=== PATIENT | female | born 1945 | race Caucasian/White ===

== ENCOUNTER 2016-12-01 16:20 | Emergency (ER) | payer MEDICARE, OTHER ==
[~2016-12-01] VITALS: Ht 154.9 cm; Wt 68.2 kg
[~2016-12-01 16:20] MED LIST: ASPI-628 PO; CHOL100045 PO; HYDR25TA4 PO; METO-272 PO; OMEG1CAP5 PO; POTA20TA16 PO; SIMV80TA4 PO
[2016-12-01 16:22] VITALS: BP 150/98; PULSE 94; RESP 20; O2SAT 97
--- NOTE | 2016-12-01 16:31 | ED.REPORT ---
HPI-Trauma Minor / Fall Date of Service Dec 01, 2016 ED Provider: Dr. Hinton Pt is a 71 year old female who presents to the ED via EMS with concerns for a ground level fall onto her face, immediately prior to arrival. She states that she was roller skating with her grand-daughter when she slipped and hit the ground onto her face. She denies any loss of consciousness, but admits to nausea and vomiting post-injury. She has no other complaints. Nursing Notes Stated Complaint: HEAD CONTUSION WHILE ROLLER SKATING Chief Complaint: Head, Face, Neck Trauma Nursing Notes Reviewed: Yes Allergies: Coded Allergies: chlorpromazine (Verified Allergy, Unknown, UNKNOWN, 08/02/14) atorvastatin (Unverified Adverse Reaction, Severe, DIZZINESS, VERTIGO, ) Anesthetics - Amide Type (Verified Adverse Reaction, Intermediate, NAUSEA/ VOMITING, 12/01/16) Anesthetics - Arlette Type- Parabens (Verified Adverse Reaction, Intermediate, NAUSEA/VOMITING, 12/01/16) Scheduled Aspirin (Aspir 81) 81 Mg Tablet.dr 81 MG PO DAILY Cholecalciferol (Vitamin D3) (Vitamin D) 1,000 Unit Capsule 1,000 UNIT PO DAILY Hydrochlorothiazide (Hydrochlorothiazide) 25 Mg Tablet 25 MG PO DAILY Metoprolol Succinate ER (Metoprolol Succinate ER) 50 Mg Tab.er.24h 50 MG PO DAILY [place]-3 Fatty Acids/Fish Oil (Fish Oil 1,000 mg Capsule) 1 Each Capsule 1 EACH PO DAILY Potassium Chloride (Potassium Chloride) 20 Meq Tab.er.prt 20 MEQ PO DAILY TAKE WITH FOOD Simvastatin (Simvastatin) 80 Mg Tablet 80 MG PO HS Scheduled PRN Ondansetron (Zofran) 4 Mg Tablet 4 MG PO Q4H PRN PRN For Nausea General Time Seen by MD: 16:30 Chief Complaint Fall, Face injury Hx Obtained From: Patient Arrived By: Ambulance Onset Occurred: Just prior to arrival Symptom Duration: Since onset Caused by: Accidental Location: Face Nose Quality: Painful Severity: Current: Mild Severity: Maximum: Moderate Similar Sx Previous: Yes Risk Factors Head CT Imaging RF Statements: Risk factors reviewed Past Medical History Past Medical History Healthy Smoking History Unknown if Ever Smoker Review of Systems Constitutional: Denies: Chills, Fever, Malaise, Weakness - generalized Respiratory: Denies: Shortness of breath, Wheezing Musculoskeletal: Denies: Back pain, Extremity pain, Neck pain Neurologic: Reports: Headache, Denies: Change LOC, Confusion, Dizziness, Lightheaded, Seizure, Syncope Complete sys rev & neg: except as marked. GI: Reports: Nausea, Vomiting Physical Exam Initial Vital Signs Vital Signs (First) Date Time Temp Pulse Resp B/P Pulse Ox O2 Delivery O2 Flow Rate FiO2 12/01/16 16:22 36.4 94 20 150/98 97 Room Air Initial VS: Reviewed Head / Eyes: Atraumatic, Normocephalic, PERRL ENT: Mucous membranes moist, Conjunctiva normal, No scleral icterus Respiratory: Breath sounds normal, Clear to auscultation, No respiratory distress Cardiovascular: Regular rate & rhythm, Heart sounds normal, Intact distal pulses Abdomen / GI: Soft, Non-tender, No guarding, No rebound, No distention Skin: Warm, Dry, No cyanosis Neurologic: Alert, Oriented, Nonfocal General/Constitutional: Awake, Alert, Well appearing, Well developed, Well nourished, Cooperative Neck: Atraumatic Trauma - Neck Specific: Positive: Immobilized - C Collar Interpretation & Diagnostics Lab Results Interpretation Test 12/01/16 18:00 CT Head Interpretation IMPRESSION: No acute intracranial abnormality. Dictated by: Joy Arias M.D. on 12/01/2016 at 17:02 Interpretation / Wet Read by: Interpret - Radiologist CT C-Spine Interpretation IMPRESSION: No fracture. Dictated by: Joy Arias M.D. on 12/01/2016 at 17:03 Interpretation / Wet Read by: Interpret - Radiologist Procedures Laceration Management Time: 18:09 Procedure Performed by: ED physician Consent / Setup / Site Prep: Consent from patient, Time-out performed, Hand hygiene observed, Stand sterile technique Location of Wound: Left eyelid, through the eyebrow Wound Length: 1 cm (1.5 cm, simple) Local Anesthesia: Lidocaine 1% Wound Preparation: Normal saline Debridement: Yes Irrigation: Copious Foreign Body Explore / Removal: Explored for foreign body Repair Skin: ___ O (4), Nylon # Sutures - Skin: 3 Closure Layers: 1 Suture Technique: Simple Post-Procedure / Complications: Antibiotic oint applied, Dressing applied, No complications, Condition improved, Tolerated procedure well, Patient stable Re-Eval/Medical Decision Source of Hx: Old records Re-Evaluation/Progress : Time of Eval: 18:16 Re-Evaluation/Progress Note: Pt is rechecked and eyelid laceration is repaired (see procedure note). Pt is informed of her diagnosis and given strict return precautions. She understands and agrees, all questions are addressed. Counseled Regarding: Diagnosis, Lab results, Need for follow-up, When/why to return to ED Discharge & Departure Impression: Primary Impression: Eyelid laceration Encounter type: initial encounter Laterality: left Qualified Code: S01.112A - Laceration without foreign body of left eyelid and periocular area, initial encounter Additional Impressions: Fall Encounter type: initial encounter Qualified Code: W19.XXXA - Unspecified fall, initial encounter Concussion Encounter type: initial encounter Loss of consciousness presence/duration: without LOC Qualified Code: S06.0X0A - Concussion without loss of consciousness, initial encounter Nasal fracture Encounter type: initial encounter Fracture type: closed Qualified Code: S02.2XXA - Fracture of nasal bones, initial encounter for closed fracture Disposition: Home Discharge Condition All VS Reviewed: Yes Condition: Stable Patient Instructions: Concussion (ED), Laceration (ED) Additional Instructions: I am so sorry that you fell today. Luckily no dangerous injuries were identified. I suspect that you will be nauseated and have a headache for the next several days. You may take the antinausea medication provided (Zofran) as well as ibuprofen, ice and/or heat. Return either here or to your primary care provider to get your stitches removed in 7-8 days. Return to the emergency department with any worsening pain, loss of consciousness, uncontrollable vomiting, any signs of infection about your eyebrow, or any other concerning symptoms. I hope you start to feel better soon! Referrals: Kenneth Mack MD (PCP) [place] Attestation Portions of this note were transcribed by Viki Carrion. I, Dr. Hinton personally performed the history, physical exam and medical decision-making; I reviewed and confirmed the accuracy of the information in the transcribed note. Signed by: Hermelindo Chinchilla, 12/01/2016 [Time] copies to: Kenneth Mack MD, Shawna L MD Dec 01, 2016 16:31 RL CARRION Dec 01, 2016 16:43
[2016-12-01] MEDS ORDERED: Ondansetron 2 mg/mL 2 mL Inj ONE (17:04)
--- NOTE | 2016-12-01 17:05 | DRSVH ---
PROCEDURE: CT BRAIN WITHOUT CONTRAST ([id number]) INDICATIONS: roller skating fell face first. TECHNIQUE: Noncontrast 4.5 mm thick angled axial sections acquired from the foramen magnum to the vertex, with c oronal reformats. COMPARISON: None. FINDINGS: Image quality: Excellent. CSF spaces: Basal cisterns are patent. No extra-axial fluid collections. The ventricles are symmet eddi in size and shape. Brain: No intracranial bleeds or masses. There is cerebral volume loss for age, with resultant vent ricular and sulcal prominence. There are periventricular and deep white matter chronic small vessel ischemic changes. There is intracranial internal carotid artery atherosclerosis. Skull and face: Calvarium and visualized facial bones appear intact, without suspicious lesions. Sinuses: Visualized sinuses and mastoids are clear. IMPRESSION: No acute intracranial abnormality. Dictated by: Joy Arias M.D. on 12/01/2016 at 17:02 Approved by: Joy Arias M.D. on 12/01/2016 at 17:03
--- NOTE | 2016-12-01 17:06 | DRSVH ---
PROCEDURE: CT CERVICAL SPINE WITHOUT CONTRAST ([id number]) INDICATIONS: roller skating fell face first. TECHNIQUE: Noncontrast 3 mm thick sections acquired from the skull base to the T4 level. Sagittal and coronal r eformats were then constructed. For radiation dose reduction, the following was used: automated exp osure control, adjustment of mA and/or kV according to patient size. COMPARISON: None. FINDINGS: Image quality: Excellent. Bones: No fractures or dislocations. Visualized superior ribs are intact. Multilevel endplate oste ophytes and disc space narrowing are present, indicating degenerative disc disease. Soft tissues: Prevertebral soft tissues are normal in thickness. No paravertebral hematomas. No ap ical pneumothoraces. IMPRESSION: No fracture. Dictated by: Joy Arias M.D. on 12/01/2016 at 17:03 Approved by: Joy Arias M.D. on 12/01/2016 at 17:05
[2016-12-01] MEDS ORDERED: Ondansetron 2 mg/mL 2 mL Inj IVPUSH ONE (17:10)
[2016-12-01] MEDS ORDERED: ONDA4TAB6 PO (18:27)
[2016-12-01 18:49] VITALS: BP 129/68; PULSE 87; RESP 16; O2SAT 98
== END 2016-12-01 18:50 | disposition home or self-care (01) ==
LOC: SED 16:20
DX: S06.0X0A Concussion without loss of consciousness, initial encounter (principal); S02.2XXA Fracture of nasal bones, initial encounter for closed fracture; S01.112A Laceration without foreign body of left eyelid and periocular area, initial encounter; V00.111A Fall from in-line roller-skates, initial encounter; Y93.51 Activity, roller skating (inline) and skateboarding; Y92.009 Unspecified place in unspecified non-institutional (private) residence as the place of occurrence of the external cause; Y99.8 Other external cause status; Z79.82 Long term (current) use of aspirin; Z88.4 Allergy status to anesthetic agent; Z88.8 Allergy status to other drugs, medicaments and biological substances

== ENCOUNTER 2016-12-08 14:38 | Emergency (ER) | payer MEDICARE, OTHER ==
[~2016-12-08 14:38] MED LIST changes: +ONDA4TAB6 PO
[2016-12-08 14:39] VITALS: BP 128/79; PULSE 84; RESP 16; O2SAT 97
--- NOTE | 2016-12-08 14:59 | ED.REPORT ---
HPI-Shaan W/B/S Date of Service Dec 08, 2016 ED Provider: Shobha Salguero History of Present Illness: fall on Friday left elbow pain from fall. bruising. right hand dominant. Creelman is primary care. . normally healthy pain with bumping or touching elbow Nursing Notes Stated Complaint: SUTURE REMOVAL Chief Complaint: Staple/Suture Removal Allergies: Coded Allergies: chlorpromazine (Verified Allergy, Unknown, UNKNOWN, 12/08/16) atorvastatin (Unverified Adverse Reaction, Severe, DIZZINESS, VERTIGO, ) Anesthetics - Amide Type (Verified Adverse Reaction, Intermediate, NAUSEA/ VOMITING, 12/08/16) Anesthetics - Arlette Type- Parabens (Verified Adverse Reaction, Intermediate, NAUSEA/VOMITING, 12/08/16) Scheduled Aspirin (Aspir 81) 81 Mg Tablet.dr 81 MG PO DAILY Cholecalciferol (Vitamin D3) (Vitamin D) 1,000 Unit Capsule 1,000 UNIT PO DAILY Hydrochlorothiazide (Hydrochlorothiazide) 25 Mg Tablet 25 MG PO DAILY Metoprolol Succinate ER (Metoprolol Succinate ER) 50 Mg Tab.er.24h 50 MG PO DAILY [place]-3 Fatty Acids/Fish Oil (Fish Oil 1,000 mg Capsule) 1 Each Capsule 1 EACH PO DAILY Potassium Chloride (Potassium Chloride) 20 Meq Tab.er.prt 20 MEQ PO DAILY TAKE WITH FOOD Simvastatin (Simvastatin) 80 Mg Tablet 80 MG PO HS Scheduled PRN Ondansetron (Zofran) 4 Mg Tablet 4 MG PO Q4H PRN PRN For Nausea General Time Seen by Provider: 14:59 Chief Complaint Wound check, Other (check elbow) Hx Obtained From: Patient Onset Occurred: 1 week ago Symptom Duration: Since onset Past Medical History Past Medical History Healthy Past Surgical History eye, bladder lift, Smoking History Never Smoker Social History Alcohol Use: Denies alcohol use Drug Use: Denies drug use Occupation lives with grand daughter and her child Ambulatory Status Independent Review of Systems Basic Review of Systems Eyes: Vision NL, No discharge : No dysuria, No frequency Neurologic: NL mental status, No weakness, No numbness Psychiatric: Normal thought content Physical Exam Initial Vital Signs Vital Signs (First) Date Time Temp Pulse Resp B/P Pulse Ox O2 Delivery O2 Flow Rate FiO2 12/08/16 14:39 36.8 84 16 128/79 97 Room Air Initial VS: Reviewed, Vital signs normal General/Constitutional: Well-developed, Well-nourished Head / Eyes: Atraumatic, Normocephalic, PERRL ENT: Mucous membranes moist, Conjunctiva normal, No scleral icterus Neck: Supple, Non-tender, Full range of motion Respiratory: Breath sounds normal, Clear to auscultation, No respiratory distress Cardiovascular: Regular rate & rhythm, Heart sounds normal, Intact distal pulses Abdomen / GI: Soft, Non-tender, No guarding, No rebound, No distention Back: No CVA tenderness Lymphatic: No lymphadenopathy Extremities: Vascular intact, Neuro intact, No swelling, No tenderness Neurologic: Alert, Oriented, Nonfocal Psychiatric: Mood/affect normal, Behavior normal, Normal thought content Skin: Atraumatic, Color NL, No rash General/Constitutional: Awake, Alert, No acute distress, Well appearing, Well developed, Well hydrated ENT: Atraumatic, Airway patent, Mucous membranes moist, Pharynx NL Respiratory / Chest: Atraumatic, Breath sounds NL, Breath sounds = bilat, No respiratory distress Cardiovascular: Heart rate NL, Regular rhythm, Heart sounds NL, No gallop patient with full range of motion of left elbow. no swelling noted. Bruising resolved. Tender to touch at olecranon. Sensation intact distally Interpretation & Diagnostics Interpretation & Diagnostics: OCEDURE: X-RAY LEFT ELBOW COMPLETE, MINIMUM THREE VIEWS ([id number]) INDICATIONS: 81-year-old female with left elbow pain after fall one week ago. TECHNIQUE: 3 views of the elbow were acquired. COMPARISON: None. FINDINGS: Bones: No fractures or dislocations. No suspicious bony lesions. Soft tissues: No elbow joint effusion. No suspicious soft tissue calcifications. IMPRESSION: No acute bony injuries of the left elbow. Dictated by: Tom Bentley M.D. on 12/08/2016 at 15:37 Approved by: Tom Bentley M.D. on 12/08/2016 at 15:37 Re-Eval/Medical Decision Med Decision/Clinical Course 71 year old female presents for evualtion of left elbow pain still present after 1 week. No sign of compartment syndrome. No sign of fracture Discharge & Departure Impression: Primary Impression: Elbow contusion Encounter type: initial encounter Laterality: left Qualified Code: S50.02XA - Contusion of left elbow, initial encounter Disposition: Home Patient Instructions: Contusion in Adults (ED) Additional Instructions: The pain the you are describing seems to be nerve pain from the fall. This will take some time to calm down. To help it you can put lidocaine to the site of greatest pain to see if that helps. It will also be helpful to avoif any pressure on the elbow. It is important that you continue with movement. Please follow with Dr. Smith as needed. I am sorry this happened. Referrals: Betty Castro (PCP) EDSupervising Provider for APC: Chase Valerio MD copies to: Betty Castro Sue ARNP Dec 08, 2016 14:59
--- NOTE | 2016-12-08 15:39 | DRSVH ---
PROCEDURE: X-RAY LEFT ELBOW COMPLETE, MINIMUM THREE VIEWS ([id number]) INDICATIONS: 81-year-old female with left elbow pain after fall one week ago. TECHNIQUE: 3 views of the elbow were acquired. COMPARISON: None. FINDINGS: Bones: No fractures or dislocations. No suspicious bony lesions. Soft tissues: No elbow joint effusion. No suspicious soft tissue calcifications. IMPRESSION: No acute bony injuries of the left elbow. Dictated by: Tom Bentley M.D. on 12/08/2016 at 15:37 Approved by: Tom Bentley M.D. on 12/08/2016 at 15:37
== END 2016-12-08 16:09 | disposition home or self-care (01) ==
LOC: SED 14:38
DX: S50.02XA Contusion of left elbow, initial encounter (principal); W19.XXXA Unspecified fall, initial encounter; Y93.89 Activity, other specified; Y92.9 Unspecified place or not applicable; Y99.8 Other external cause status; Z79.82 Long term (current) use of aspirin